=== PATIENT | male | born 1955 | race African-American/Black ===

== ENCOUNTER 2020-06-21 20:08 | Emergency (ER) | payer OTHER ==
[~2020-06-21 20:08] MED LIST: Iopamidol-370 76% 500 ML 1 ML ONE
--- NOTE | 2020-06-21 20:18 | CT ---
CT head noncontrast HISTORY: Altered mental status. FINDINGS: There is no evidence of acute intracranial hemorrhage or infarct. Mild diffuse cortical atr ophy. There is no mass effect or shift of midline structures. Visualized paranasal sinuses remain well aerated. IMPRESSION : No acute intracranial abnormalities are demonstrated.
--- NOTE | 2020-06-21 20:56 | CT ---
CT arteriogram neck with IV contrast and 3-D imaging CT arteriogram head with IV contrast and 3-D imaging HISTORY: Altered mental status. FINDINGS: There is good contrast opacification of the aortic arch with normal branching of the great vessels. Good flow into each carotid and vertebral system. Mild arterial calcification. Each internal carotid artery is widely patent. 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 Extensive motion artifact at the level of the head. Detail limited. [place] is intact. Good flow into each cerebral and cerebellar system. No filling defects evident. No enhancing brain lesions. IMPRESSION : No acute vascular abnormalities are demonstrated. Mild atherosclerosis. Findings were called to Dr. Gong in the emergency department at 2046 hours. Code CR.
[2020-06-21 21:00] LABS: #Lymphocytes 0.4 thou/uL (1.20-3.40); #Monocytes 0.1 thou/uL (0.11-0.59); #Neutrophils 1.9 thou/uL (1.40-6.50); %Basophils 0.6 % (0.0-1.0); %Eosinophils 1.5 % (0.0-10.0); %Lymphocytes 16.8 % (21.0-51.0); %Monocytes 5.1 % (0.0-10.0); Hemoglobin 11.1 g/dL (14.0-18.0); Mean Corpuscular HGB CONC 32.5 g/dL (32.0-36.0); Mean Corpuscular Hemoglobin 31.5 pg (27.0-31.0); Mean Corpuscular Volume 97.1 fL (78.0-98.0); Mean Platelet Volume 9.3 fL (7.4-10.4); Platelet Count 67 thou/uL (130-400); RBC Distribution Width 13.6 % (11.5-14.5); Red Blood Cell (RBC) Count 3.51 mill/uL (4.70-6.10); White Blood Cell (WBC) Count 2.5 thou/uL (4.8-10.8)
[2020-06-21 21:01] LABS: INR-International Normal Ratio 1.1; PTT 34.8 sec (22.9-36.1); Prothrombin Time 14.7 sec (12.0-14.7)
[2020-06-21 21:02] LABS: Bilirubin Negative (Negative); Blood, Urine Negative (Negative); Clarity Clear (Clear); Glucose, Urine (Dipstick) Normal (Negative); Ketone, Urine Negative (Negative); Leukocyte Negative Leu/uL (Negative); Nitrite Negative (Negative); Protein, Urine (Dipstick) Negative (Neg-Trace); Specific Gravity, Urine 1.008 (1.002-1.036); Urobilinogen Normal mg/dL (Less than 2)
[2020-06-21 21:11] LABS: Amphetamine Not Detected (NotDetected); Barbiturates Screen Not Detected (NotDetected); Benzodiazepine Screen Not Detected (NotDetected); Cocaine Metabolite Screen Not Detected (NotDetected); Medtox Control Line Valid? VALID (VALID); Medtox Reader # READER 1; Methadone Not Detected (NotDetected); Methamphetamine Not Detected (NotDetected); Opiate Screen Not Detected (NotDetected); Oxycodone Screen Not Detected (NotDetected); Phencyclidine (PCP) Not Detected (NotDetected); THC/Cannabinoid Screen Not Detected (NotDetected); Tricyclic Screen Not Detected (NotDetected)
[2020-06-21 21:14] LABS: ALT (SGPT) 66 U/L (8-55); AST (SGOT) 52 U/L (5-34); Albumin 3.3 g/dL (3.4-4.8); Alkaline Phosphatase 58 U/L (40-110); Anion Gap 13 mmol/L (10-20); BUN (Urea Nitrogen) 15 mg/dL (8.4-25.7); Bilirubin, Total 0.3 mg/dL (0.2-1.2); Calc. Creatinine Clearance 0 mL/min (70-130); Calcium 8.9 mg/dL (7.8-10.44); Carbon Dioxide 26 mmol/L (23-31); Chloride 96 mmol/L (98-107); Globulin 3.8 g/dL (2.4-3.5); Glucose 113 mg/dL (80-115); Potassium 3.9 mmol/L (3.5-5.1); Protein, Total 7.1 g/dL (5.8-8.1); Sodium 131 mmol/L (136-145)
[2020-06-21 21:24] LABS: Acetaminophen Less than 6.0 mcg/mL (10.0-30.0); Alcohol Less than 10 mg/dL (Less than 10); Salicylate Less than 8.0 mg/dL (15.0-30.0)
--- NOTE | 2020-06-24 14:28 | CT ---
"PRELIMINARY REPORT" CT arteriogram neck with IV contrast and 3-D imaging CT arteriogram head with IV contrast and 3-D imaging HISTORY: Altered mental status. FINDINGS: There is good contrast opacification of the aortic arch with normal branching of the great vessels. Good flow into each carotid and vertebral system. Mild arterial calcification. Each internal carotid artery is widely patent. 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 Extensive motion artifact at the level of the head. Detail limited. [place] is intact. Good flow into each cerebral and cerebellar system. No filling defects evident. No enhancing brain lesions. IMPRESSION : No acute vascular abnormalities are demonstrated. Mild atherosclerosis. Findings were called to Dr. Gong in the emergency department at 2046 hours. Code CR. Transcribed Date/Time: 06/24/2020 2:28 PM
== END 2020-06-21 23:39 | disposition short-term general hospital (02) ==
LOC: ERS 20:08
DX: R41.82 Altered mental status, unspecified (principal); I63.9 Cerebral infarction, unspecified; R29.715 NIHSS score 15; N40.0 Benign prostatic hyperplasia without lower urinary tract symptoms; M19.90 Unspecified osteoarthritis, unspecified site; N42.9 Disorder of prostate, unspecified; B18.1 Chronic viral hepatitis B without delta-agent; Z79.899 Other long term (current) drug therapy
CPT/HCPCS: 36415; 36416; 51701; 70450; 70496; 70498; 80053; 80306; 80307; 81003; 82140; 85025; 85610; 85730; 93005; 94760; Q9967